=== PATIENT | male | born 1955 | race Caucasian/White ===

== ENCOUNTER → 2016-09-26 | Outpatient (CLI) | payer OTHER | LOC: FIMAGING 10:04 | PROVIDERS: ATTEND Physical Medicine & Rehabilitation | DX: M43.28 Fusion of spine, sacral and sacrococcygeal region (principal); M54.16 Radiculopathy, lumbar region | CPT/HCPCS: 72131-PO ==

== ENCOUNTER 2017-04-04 12:54 | Emergency (ER) | payer OTHER ==
[2017-04-04 13:24] VITALS: BP 157/84; PULSE 88; RESP 16; TEMP 98.8; O2SAT 94
--- NOTE | 2017-04-04 13:26 | EDPHY ---
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 He says he struck either the wall or been up towels. He also sustained an arm abrasion of the time. He denies hitting his head, losing consciousness. He denies any neck pain. The pain is very localized to his left mid axillary line on his lower ribs but is worse when he coughs. He denies any pleuritic pain with breathing. He denies any difficulty breathing. He has been taking ibuprofen with some relief but says that yesterday while he was at work it became too painful and he decided to be seen today because it is his day off. Patient quit smoking 25 years ago. He denies any fever, or chills. REVIEW OF SYSTEMS: As in HPI, and all other systems reviewed and are negative Source: Patient - Family History Significant Family History: No pertinent family hx - Physical Exam Exam: General Appearance: Alert, nontoxic appearing, speaking full sentences. Head: normocephalic, atraumatic Eyes: Pupils equal and round, reactive to light, no pallor or injection. Mouth: Mucous membranes moist. Respiratory: Normal, effort, lungs are clear to auscultation. No wheezes, rales or rhonchi. Positive left lower rib chest wall tenderness in mid axillary line, no crepitus or step-off, minimal anterior tenderness Cardiovascular: Regular rate and rhythm. S1, S2, no murmurs, gallops or rubs appreciated Gastrointestinal: Abdomen is soft and nontender, no masses, bowel sounds normal. Back: No CVA tenderness, no bony tenderness Neurological: Awake, alert and oriented x 3, no pronator drift, normal gait, no pronator drift Skin: Warm and dry, no rashes. Musculoskeletal: No deformities or tenderness. Extremities: full range of motion, no edema, no tenderness, DP2+ bilat Psychiatric: Patient has normal affect, there is no agitation. Constitutional: Initial Vital Signs Temperature (C) 37.1 C 04/04/17 13:19 Heart Rate 88 11/03/17 13:19 Respiratory Rate 16 04/04/17 13:19 Blood Pressure 157/84 H 04/04/17 13:19 O2 Sat (%) 94 04/04/17 13:19 O2 Delivery Mode Room Air Allergies/Adverse Reactions: No Known Allergies Allergy (Unverified 04/04/17 13:17) Home Medications: Medication Instructions Recorded Bp Meds 04/04/17 Insulin Regular Human 04/04/17 Lidocaine 5% [Lidoderm 5% Patch 1 ea TD DAILY #30 patch 04/04/17 (*)] Lyrica 04/04/17 Medical Decision Making ED Course/Re-evaluation: 61-year-old man presents with left-sided rib pain after a fall 4 days ago. There is no evidence of hypoxia or hemodynamic instability. X-ray shows no evidence of fracture, pneumothorax or pneumonia. We will treat the patient symptomatically with topical lidocaine patches and he can continue his ibuprofen and add Tylenol if necessary. He is given a work note to return to work tomorrow. He can follow up with his primary care physician as needed. Patient has a history of hypertension for which he takes medications. He says he has been having difficulty controlling it with his current meds. He will follow up with his primary care physician for this. Departure - Departure Disposition: Home, Routine, Self-Care Clinical Impression: Contusion of left chest wall Qualifiers: Encounter type: initial encounter Qualified Code(s): S20.212A - Contusion of left front wall of thorax, initial encounter Condition: Good Instructions: Chest Wall Pain (ED) Additional Instructions: You were seen by Dr. Luz Marina Serrano today. He may continue to take ibuprofen for pain. You may add Tylenol 1000 mg every 6 hours as needed. Try also topical lidocaine patches. Follow up with her primary care physician. Return for any worsening or new concerns. Stand Alone Forms: Work Excuse Prescriptions: Lidocaine 5% [Lidoderm 5% Patch (*)] 1 ea TD DAILY #30 patch
== END 2017-04-04 14:13 | disposition home or self-care (01) ==
LOC: CED 12:54
DX: S20.212A Contusion of left front wall of thorax, initial encounter (principal); Z79.4 Long term (current) use of insulin; W01.198A Fall on same level from slipping, tripping and stumbling with subsequent striking against other object, initial encounter; Y92.89 Other specified places as the place of occurrence of the external cause; Y99.0 Civilian activity done for income or pay; Y93.89 Activity, other specified
CPT/HCPCS: 71020-PO